=== PATIENT | male | born 1950 | race Caucasian/White ===

== ENCOUNTER 2017-07-29 17:34 | Inpatient (IN) ==
[2017-07-29] MEDS ORDERED: Dextrose Gel 15 GM PO PRN ×2 (18:48)
[2017-07-29] MEDS ORDERED: *HR* Dextrose 50 % in Water (Syg) 50 ML SYRINGE IVP PRN (18:48)
[2017-07-29] MEDS ORDERED: D5% in Water 1,000 ML IVC PRN (18:48)
[2017-07-29] MEDS ORDERED: Insulin DETEMIR 100 UNIT/ML per UNIT SQ ONE (21:00)
[2017-07-29] MEDS: Insulin LISPRO 300 UNITS/3 ML VIAL SQ SCH ×2 (22:20→22:26)
[2017-07-29] MEDS: Gabapentin 300 MG CAPSULE PO SCH (22:23)
[2017-07-29] MEDS: Famotidine 20 MG TABLET PO SCH (22:23)
[2017-07-29] MEDS ORDERED: Melatonin 3 MG TABLET PO SCH (22:45)
[2017-07-29] MEDS ORDERED: Melatonin 3 MG TABLET PO PRN (23:11)
[2017-07-30 05:36] LABS: Basophils % 0.4 %; Eosinophils # 0.2 K/mcL (0.0-0.6); Eosinophils % 2.7 %; Hematocrit 41.6 % (37.5-50.1); Immature Granulocytes % 1.4 % (0-4); Lymphocytes # 3.8 K/mcL (0.6-4.6); Lymphocytes % 42.7 %; Mean Corpuscular HGB Conc 32.5 g/dL (31.6-35.5); Mean Corpuscular Hemoglobin 29.8 pg (28.0-33.3); Mean Corpuscular Volume 91.8 fL (83.0-100.0); Mean Platelet Volume 12.3 fL (9.4-12.4); Monocytes # 0.9 K/mcL (0.0-1.3); Monocytes % 9.6 %; Neutrophils # 3.9 K/mcL (1.6-8.9); Platelet Count 112 K/mcL (140-400); Red Blood Count 4.53 M/mcL (4.19-5.50); Red Cell Distribution Width 13.7 % (11.5-14.5); Segmented Neutrophils % 43.2 %
[2017-07-30 05:38] LABS: INR 1.1; Prothrombin Time 11.6 Seconds (9.4-12.1)
[2017-07-30 05:41] LABS: Activated Partial Thrombo Time 30.4 Seconds (26.0-36.0)
[2017-07-30 05:43] LABS: Hemoglobin 13.5 g/dL (12.9-16.9)
[2017-07-30 05:52] LABS: Calcium 8.8 mg/dL (8.6-10.3); Potassium 4.5 mEq/L (3.5-5.1)
[2017-07-30] MEDS: *HR* Heparin 5,000 UNIT/ML VIAL SQ SCH ×2 (05:58→17:27)
[2017-07-30] MEDS: Famotidine 20 MG TABLET PO SCH ×2 (08:50→22:50)
[2017-07-30] MEDS: Gabapentin 300 MG CAPSULE PO SCH ×3 (08:50→22:49)
[2017-07-30] MEDS: Aspirin 81 MG TAB.CHEW PO SCH (08:50)
[2017-07-30] MEDS: Colchicine 0.6 MG TABLET PO SCH (08:50)
[2017-07-30] MEDS: *HR* Metformin 500 MG TABLET PO SCH ×2 (08:51→17:27)
[2017-07-30] MEDS: Insulin LISPRO 300 UNITS/3 ML VIAL SQ SCH ×4 (08:53→23:39)
[2017-07-30] MEDS ORDERED: *HR* Glimepiride 4 MG TABLET PO SCH (09:00)
--- NOTE | 2017-07-30 11:15 | Internal Med History&Physical ---
Date of Encounter: 07/30/17 Time of Encounter: 11:12 Assessment and Plan (1) CVA (cerebral vascular accident) Current visit: Yes Status: Acute PT/OT eval and treat. education on stroke prevention provided. Qualifiers: CVA mechanism: unspecified Qualified Code(s): I63.9 - Cerebral infarction, unspecified (2) Hypertension Current visit: Yes Controlled with current medication. Monitor blood pressure. Qualifiers: Hypertension type: essential hypertension Qualified Code(s): I10 - Essential (primary) hypertension (3) Diabetes mellitus Current visit: Yes Status: Chronic Continue to monitor fingerstick glucose, achs. Continue glimepiride, metformin , Levamir, Humalog per sliding scale and insulin. Qualifiers: Diabetes mellitus type: type 2 Diabetes mellitus long term care pharmacist insulin use: with snf use Diabetes mellitus complication status: without complication Qualified Code(s): E11.9 - Type 2 diabetes mellitus without complications; Z79.4 - FDC (current) use of insulin; Z79.4 - FDC ( current) use of insulin; Z79.4 - petroleum terminal plant operator (current) use of insulin; Z79.4 - FDC (current) use of insulin (4) Gout Current visit: Yes Status: Acute continue cochicine. monitor for improvement. Qualifiers: Gout site: knee Gout etiology: unspecified cause Chronicity: acute Laterality: right Qualified Code(s): M10.9 - Gout, unspecified (5) CAD (coronary artery disease) Current visit: No Status: Acute continue ASA. monitor. Qualifiers: Coronary Disease-Associated Artery/Lesion type: unspecified vessel or lesion type [place] vs. transplanted heart: unspecified whether [place] or transplanted heart Associated angina: without angina Qualified Code(s): I25.10 - Atherosclerotic heart disease of [place] coronary artery without angina pectoris Internal Medicine - H&P: HPI Admitted From: Hospital to Hospital Transfer Plans for Post Hospital Care: Home History of present illness: Mr. Castro is a 67 year old male admitted to inpatient rehab unit from [facility] status post CVA. Was recently diagnosed with Newby's palsy. Continues to have slight drooping of right-sided facee. Past medical history includes: diabetes, hypertension, CAD with hx of CABG, Gerd, IBS, hyperlipidemia, asthma. Complains of bilateral knee pain right greater than left. States it hurts to put weight on. Denies any instability or feeling like it is going to buckle. Being treated for gout with colchicine. Has had to bowel movements in the past 5 hours so far today. History of gout which has been controlled with allopurinol. Testing performed fellatio includes MRI brain with and without contrast. This shows an acute infarct involving thalamus continue to posterior limit internal The Right Side. X-ray of right knee shows joint fusion interior soft tissue swelling and arthritis. X-ray of right hip concludes arthritis. CT of neck reports both right and left internal and external carotid arteries and for cheap renal arteries with no significant stenosis. Patient lives at home with and has been very active prior to stroke, going to the [facility] for cardio exercise. History of mixed hyperlipidemia. Has tried fenofibrate, Lipitor, simvastatin, zetia in the past. All of them caused lower extremity aches and pains. He is working with PCP on getting injection approved. Past Med Surg Social Fam HX - Past Medical History Medical history: arthritis, asthma, coronary artery disease, diabetes, GERD, hyperlipidemia, hypertension Psychiatric history: anxiety - Past Surgical History Surgical History: other - Social History Smoking Status: Former smoker Smokeless Tobacco Status: No Alcohol use: occasionally Drug use: none - Family History Mother Living Status: Hx Family Cardiac Disorders: Yes Hx Family Respiratory Disorders: No Hx Family Cancer: Yes Hx Family GI Disorders: No Hx Family Endocrine Disorder: Yes (DM) Hx Family Neuromuscular Disorders: No Hx Family Neurologic Disorders: No Hx Family HEENT Disorders: No Hx Family Autoimmune Disorders: No Father Adopted: No Family Member Ethnicity: Non- Living Status: Age at : 81 Hx Family Cardiac Disorders: Yes (HEART ATTACK) Hx Family Respiratory Disorders: No Hx Family Cancer: No Hx Family GI Disorders: No Hx Family Endocrine Disorder: No Hx Family Neuromuscular Disorders: No Hx Family Neurologic Disorders: No Hx Family HEENT Disorders: No Hx Family Autoimmune Disorders: No Internal Medicine - H&P: Meds Albuterol Sulfate [Proventil Hfa] 2 puff IH Q4H PRN 01/05/15 [History] Aspirin Enteric Coated [Aspirin EC] 81 mg PO DAILY 01/05/15 [History] Colchicine [Colcrys] 0.6 mg PO TID PRN 01/05/15 [History] Hydrocodone/Acetaminophen [[place] 5-325 Tablet] 1 tab PO BID PRN 01/05/15 [ History] Losartan [Cozaar] 25 mg PO DAILY 01/05/15 [History] Pantoprazole Sodium [Protonix] 40 mg PO QAM 01/05/15 [History] Zolpidem [Ambien] 5 mg PO HS 01/05/15 [History] Glimepiride [Amaryl] 4 mg PO BID 07/18/15 [History] Baclofen [Lioresal] 10 mg PO BID PRN 11/20/15 [History] Allopurinol [Zyloprim] 100 mg PO DAILY 03/11/16 [History] Insulin DETEMIR [Levemir Flextouch] 50 unit SQ HS 03/11/16 [History] Budesonide/Formoterol 160/4.5 [Symbicort 160/4.5] 2 puff IH BIDR 08/19/16 [ History] Ranitidine HCl [Heartburn Relief] 150 mg PO BID 08/19/16 [History] Gabapentin [Neurontin] 600 mg PO TID 10/28/16 [History] Ezetimibe [Zetia] 10 mg PO DAILY 05/30/17 [History] Fluticasone Propionate Nasal [Flonase] 50 mcg NS BID 05/30/17 [History] Insulin ASPART [Novolog Flexpen] 0 unit SQ TIDAC 05/30/17 [History] Loratadine [Claritin] 10 mg PO DAILY 05/30/17 [History] Metoprolol XL (24 HR) Succ [Toprol Xl] 50 mg PO DAILY 05/30/17 [History] Montelukast [Singulair] 10 mg PO DAILY 05/30/17 [History] 3 Allergy/AdvReac Type Severity Reaction Status Date / Time niacin AdvReac Unknown Flushing Verified 10/28/16 10:19 nitroglycerin AdvReac Unknown Hypotension Verified 10/28/16 10:19 Oxycodone AdvReac Unknown Agitated Verified 10/28/16 10:19 Penicillins AdvReac Unknown Hives Verified 10/28/16 10:19 JAVIER Inhibitors AdvReac Cough Verified 07/13/16 18:34 atorvastatin AdvReac Diarrhea Verified 07/13/16 18:34 ezetimibe [From Zetia] AdvReac Dizziness Verified 07/13/16 18:34 simvastatin AdvReac Dizziness Verified 07/13/16 18:34 All Systems PM: A 10-system review of systems was performed and is negative for pertinent findings except as documented above in the HPI. - Constitutional Constitutional: no chills, no fever(s), no night sweats - EENT Eyes: no change in vision, no discharge, no pain, no photophobia Ears: no ear discharge, no ear pain, no tinnitus Nose, mouth and throat: no dysphagia, no nasal discharge, no neck pain, no sore throat - Cardiovascular Cardiovascular ROS IM: no chest pain, no diaphoresis, no dyspnea, no lightheadedness, no palpitations, no syncope - Respiratory Respiratory: no cough, no dyspnea, no wheezing, no excessive phlegm production - Gastrointestinal Gastrointestinal: no abdominal pain, no diarrhea, no hematemesis, no hematochezia, no melena, no nausea, no vomiting - Musculoskeletal Musculoskeletal ROS IM: no numbness, no tingling Additional comments: Bilateral knee pain and swelling - Integumentary Integumentary IM: no rash, no unusual bruising - Neurological Neurological ROS: no confusion, no convulsions, no focal weakness, no numbness, no tingling, no tremor(s) - Hematologic/Lymphatic Hematologic/Lymphatic: no easy bruising - Constitutional Vitals: Temp Pulse Resp BP Pulse Ox 97.7 F 50 16 162/80 98 07/30/17 07:42 07/30/17 07:42 07/30/17 07:42 07/30/17 07:42 07/30/17 07:42 General appearance: Present: A&O X 3, pleasant, no acute distress, answers questions appropriately - Head Head exam: Present: atraumatic, normocephalic - Eye Eye exam: Present: PERRL, conjuntiva pink, sclera anicteric Pupils: Present: PERRL - Neck Neck exam general surgery: Present: supple, trachea midline. Absent: lymphadenopathy - Respiratory Respiratory exam: Present: CTAB. Absent: accessory muscle use, rales, rhonchi, wheezes - Cardiovascular Cardiovascular exam: Present: RRR, +S1, +S2. Absent: diastolic murmur, gallop, rubs, systolic murmur - GI/Abdominal GI/Abdominal exam: Present: normal bowel sounds, soft, no peritoneal signs. Absent: distended, tenderness - Extremities Exam Extremities exam: Present: warm, radial pulses palpable and symmetrical. Absent : calf tenderness, cyanotic, pedal edema Additional comments: bilateral knees swollen R>L with redness and slight warmth. tender to palpate around the right patellar area on right knee. - Neurological Exam Neurological exam: Present: CN II-XII intact, oriented X3, no focal deficits, strengths equal and symetr throughout, facial droop. Absent: pronater drift, speech deficit Additional comments: slight right sided facial droop - Skin Skin exam: Present: dry, intact Internal Med - H&P Results - Labs CBC & Chem 7: 07/30/17 05:20 07/30/17 05:20 Labs: Short CBC 07/30/17 Range/Units 05:20 WBC 9.0 (4.3-11.1) K/mcL Hgb 13.5 D (12.9-16.9) g/dL Hct 41.6 (37.5-50.1) % Plt Count 112 L (140-400) K/mcL Neutrophils # 3.9 (1.6-8.9) K/mcL BMP 07/30/17 05:20 Sodium 136 Potassium 4.5 Chloride 102 Carbon Dioxide 29 BUN 20 Creatinine 1.49 H Glucose 128 H Calcium 8.8
[2017-07-30] MEDS: Fluticasone Propionate Nasal 50 MCG/SPRAY BOTTLE NS SCH (12:36)
[2017-07-30] MEDS: *HR* HYDROcodone/Acet 5/325 mg TABLET PO PRN (12:47)
[2017-07-30] MEDS: Insulin DETEMIR 100 UNIT/ML per UNIT SQ SCH (23:38)
[2017-07-31] MEDS: *HR* Heparin 5,000 UNIT/ML VIAL SQ SCH ×2 (06:08→17:01)
[2017-07-31] MEDS: *HR* HYDROcodone/Acet 5/325 mg TABLET PO PRN (06:09)
[2017-07-31 06:37] LABS: Basophils # 0.1 K/mcL (0.0-0.2); Basophils % 0.8 %; Eosinophils # 0.2 K/mcL (0.0-0.6); Eosinophils % 2.5 %; Hemoglobin 13.7 g/dL (12.9-16.9); Lymphocytes # 3.2 K/mcL (0.6-4.6); Lymphocytes % 44.5 %; Mean Corpuscular HGB Conc 33.4 g/dL (31.6-35.5); Mean Corpuscular Hemoglobin 30.3 pg (28.0-33.3); Mean Corpuscular Volume 90.7 fL (83.0-100.0); Mean Platelet Volume 12.5 fL (9.4-12.4); Monocytes # 0.6 K/mcL (0.0-1.3); Monocytes % 8.6 %; Platelet Count 131 K/mcL (140-400); Red Blood Count 4.52 M/mcL (4.19-5.50); Red Cell Distribution Width 13.5 % (11.5-14.5); Segmented Neutrophils % 42.6 %
[2017-07-31 06:55] LABS: Alanine Aminotransferase 42 Units/L (7-52); Albumin 3.4 g/dL (3.5-5.7); Albumin/Globulin Ratio 1.2 (1.1-2.2); Alkaline Phosphatase 84 Units/L (34-104); Aspartate Amino Transferase 33 Units/L (13-39); BUN/Creatinine Ratio 14 (6-26); Bilirubin,Total 0.4 mg/dL (0.3-1.0); Blood Urea Nitrogen 20 mg/dL (8-23); Calcium 9.2 mg/dL (8.6-10.3); Carbon Dioxide 27 mEq/L (23-29); Chloride 101 mEq/L (98-107); Globulin 2.9 g/dL (2.4-3.5); Glucose 192 mg/dL (70-105); Osmolality,Calculated 288 (280-300); Potassium 4.4 mEq/L (3.5-5.1); Sodium 135 mEq/L (136-145); Total Protein 6.3 g/dL (6.4-8.9); Uric Acid 6.6 mg/dL (2.3-7.6); eGFR For African Americans > 60 (> 60); eGFR For Non-African Americans 50 (> 60)
[2017-07-31] MEDS: Insulin LISPRO 300 UNITS/3 ML VIAL SQ SCH ×4 (07:52→21:11)
[2017-07-31] MEDS: Famotidine 20 MG TABLET PO SCH ×2 (07:53→21:40)
[2017-07-31] MEDS: Colchicine 0.6 MG TABLET PO SCH (07:53)
[2017-07-31] MEDS: Gabapentin 300 MG CAPSULE PO SCH ×3 (07:53→21:39)
[2017-07-31] MEDS: *HR* Glimepiride 4 MG TABLET PO SCH ×2 (07:53→21:40)
[2017-07-31] MEDS: Metoprolol XL (24 HR) Succ 25 MG TAB.ER.24H PO SCH (07:54)
[2017-07-31] MEDS: Aspirin 81 MG TAB.CHEW PO SCH (07:54)
[2017-07-31] MEDS: *HR* Metformin 500 MG TABLET PO SCH ×2 (07:54→17:01)
[2017-07-31] MEDS: Fluticasone Propionate Nasal 50 MCG/SPRAY BOTTLE NS SCH (07:55)
--- NOTE | 2017-07-31 17:35 | Internal Med Progress Note ---
Date of Encounter: 07/31/17 Time of Encounter: 17:31 - Assessment and plan (1) CVA (cerebral vascular accident) Current Visit: Yes Status: Acute Assessment and plan: No acute issues. Patient denies any discomforts or shortness of breath. Patient denies any acute neurological deficits. On exam patient shows no focal deficits. History of Newby's palsy but no facial droop noted. Patient states he continues to have some difficulty with balance and continues to use a walker to reduce risk of fall. Will continue with physical therapy Qualifiers: CVA mechanism: unspecified Qualified Code(s): I63.9 - Cerebral infarction, unspecified (2) Hypertension Current Visit: Yes Status: Chronic Assessment and plan: Vital signs are stable. We will continue with current medications. Qualifiers: Hypertension type: essential hypertension Qualified Code(s): I10 - Essential (primary) hypertension (3) Diabetes mellitus Current Visit: Yes Status: Chronic Assessment and plan: No acute issues. We will continue with fingersticks and SSI coverage. 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 Continue with current plan of care and medications Qualifiers: Coronary Disease-Associated Artery/Lesion type: unspecified vessel or lesion type [place] vs. transplanted heart: unspecified whether [place] or transplanted heart Associated angina: without angina Qualified Code(s): I25.10 - Atherosclerotic heart disease of [place] coronary artery without angina pectoris - Time Spent With Patient less than 15 minutes - Subjective Interval history: Patient appears relaxed and currently denies any discomforts or shortness of breath. Patient denies any acute neurological deficits. States that physical therapy has been going well. - Constitutional Vitals: Temp Pulse Resp BP Pulse Ox 98.7 F 78 16 129/89 96 07/31/17 08:14 07/31/17 08:14 07/31/17 08:14 07/31/17 08:14 07/31/17 08:14 General appearance: Present: A&O X 3, pleasant, no acute distress, answers questions appropriately - Head Head exam: Present: atraumatic, normocephalic - Eye Eye exam: Present: PERRL, conjuntiva pink, sclera anicteric Pupils: Present: PERRL - Neck Neck exam general surgery: Present: supple, trachea midline. Absent: lymphadenopathy - Respiratory Respiratory exam: Present: CTAB. Absent: accessory muscle use, rales, rhonchi, wheezes - Cardiovascular Cardiovascular exam: Present: RRR, +S1, +S2. Absent: diastolic murmur, gallop, rubs, systolic murmur - GI/Abdominal GI/Abdominal exam: Present: normal bowel sounds, soft, no peritoneal signs. Absent: distended, tenderness - Extremities Exam Extremities exam: Present: warm, radial pulses palpable and symmetrical. Absent : calf tenderness, cyanotic, pedal edema - Neurological Exam Neurological exam: Present: CN II-XII intact, oriented X3, no focal deficits. Absent: pronater drift, facial droop, speech deficit Additional comments: History of Newby's palsy, but no facial droop noted on exam. Speech is clear. No neurological focal deficits noted on exam. - Skin Skin exam: Present: dry, intact Internal Medicine: Result - Labs CBC & Chem 7: 07/31/17 06:05 07/31/17 06:05 Labs: Short CBC 07/31/17 Range/Units 06:05 WBC 7.1 (4.3-11.1) K/mcL Hgb 13.7 (12.9-16.9) g/dL Hct 41.0 (37.5-50.1) % Plt Count 131 L (140-400) K/mcL Neutrophils # 3.0 (1.6-8.9) K/mcL BMP 07/31/17 06:05 Sodium 135 L Potassium 4.4 Chloride 101 Carbon Dioxide 27 BUN 20 Creatinine 1.41 H Glucose 192 H Calcium 9.2 Liver Function 07/31/17 Range/Units 06:05 Total Bilirubin 0.4 (0.3-1.0) mg/dL AST 33 (13-39) Units/L ALT 42 (7-52) Units/L Alkaline Phosphatase 84 (34-104) Units/L Albumin 3.4 L (3.5-5.7) g/dL - ABG Interpretation ABG results: PT/INR, D-dimer PT 11.6 Seconds (9.4-12.1) 07/30/17 05:20 Consult Discharge Plan - Plan Referrals: Rehan Quintana CNP [Primary Care Provider] -
[2017-07-31 18:54] VITALS: BP 163/74
--- NOTE | 2017-07-31 21:21 | Physcial Medicine-Consult Note ---
Date of Encounter: 07/31/17 Time of Encounter: 19:00 Physical Medicine - AP (1) CVA (cerebral vascular accident) Status: Acute Assessment and plan: Good progress in therapies. Working on balance and safety. Discharge planning. Code(s): I63.9 - Cerebral infarction, unspecified SNOMED Code(s): 220004605 Physical Medicine - HPI - Data of Consult Requesting Physician: Mitchel Mancilla MD Primary Care Provider: Rehan Quintana CNP - Consult Narrative History of present illness: Mr. Castro is a 67 year old RH male admitted to [facility] with thalamic CVA manifest as poor balance and motor control. He is asking to go home however is still having unsteady gait, poor safety awareness, and poor insight into his deficits. CC: Mitchel Mancilla MD Past Med Surg Social Fam HX - Past Medical History Medical history: arthritis, asthma, coronary artery disease, diabetes, GERD, hyperlipidemia, hypertension, other (Gout) Psychiatric history: anxiety - Past Surgical History Surgical History: other - Social History Smoking Status: Former smoker Smokeless Tobacco Status: No Alcohol use: occasionally Drug use: none - Family History Mother Living Status: Hx Family Cardiac Disorders: Yes Hx Family Respiratory Disorders: No Hx Family Cancer: Yes Hx Family GI Disorders: No Hx Family Endocrine Disorder: Yes (DM) Hx Family Neuromuscular Disorders: No Hx Family Neurologic Disorders: No Hx Family HEENT Disorders: No Hx Family Autoimmune Disorders: No Father Adopted: No Family Member Ethnicity: Non- Living Status: Age at : 81 Hx Family Cardiac Disorders: Yes (HEART ATTACK) Hx Family Respiratory Disorders: No Hx Family Cancer: No Hx Family GI Disorders: No Hx Family Endocrine Disorder: No Hx Family Neuromuscular Disorders: No Hx Family Neurologic Disorders: No Hx Family HEENT Disorders: No Hx Family Autoimmune Disorders: No Medications and Allergies Albuterol Sulfate [Proventil Hfa] 2 puff IH Q4H PRN 01/05/15 [History] Aspirin Enteric Coated [Aspirin EC] 81 mg PO DAILY 01/05/15 [History] Colchicine [Colcrys] 0.6 mg PO TID PRN 01/05/15 [History] Hydrocodone/Acetaminophen [[place] 5-325 Tablet] 1 tab PO BID PRN 01/05/15 [ History] Losartan [Cozaar] 25 mg PO DAILY 01/05/15 [History] Pantoprazole Sodium [Protonix] 40 mg PO QAM 01/05/15 [History] Zolpidem [Ambien] 5 mg PO HS 01/05/15 [History] Glimepiride [Amaryl] 4 mg PO BID 07/18/15 [History] Baclofen [Lioresal] 10 mg PO BID PRN 11/20/15 [History] Allopurinol [Zyloprim] 100 mg PO DAILY 03/11/16 [History] Insulin DETEMIR [Levemir Flextouch] 50 unit SQ HS 03/11/16 [History] Budesonide/Formoterol 160/4.5 [Symbicort 160/4.5] 2 puff IH BIDR 08/19/16 [ History] Ranitidine HCl [Heartburn Relief] 150 mg PO BID 08/19/16 [History] Gabapentin [Neurontin] 600 mg PO TID 10/28/16 [History] Ezetimibe [Zetia] 10 mg PO DAILY 05/30/17 [History] Fluticasone Propionate Nasal [Flonase] 50 mcg NS BID 05/30/17 [History] Insulin ASPART [Novolog Flexpen] 0 unit SQ TIDAC 05/30/17 [History] Loratadine [Claritin] 10 mg PO DAILY 05/30/17 [History] Metoprolol XL (24 HR) Succ [Toprol Xl] 50 mg PO DAILY 05/30/17 [History] Montelukast [Singulair] 10 mg PO DAILY 05/30/17 [History] 3 Allergy/AdvReac Type Severity Reaction Status Date / Time niacin AdvReac Unknown Flushing Verified 10/28/16 10:19 nitroglycerin AdvReac Unknown Hypotension Verified 10/28/16 10:19 Oxycodone AdvReac Unknown Agitated Verified 10/28/16 10:19 Penicillins AdvReac Unknown Hives Verified 10/28/16 10:19 JAVIER Inhibitors AdvReac Cough Verified 07/13/16 18:34 atorvastatin AdvReac Diarrhea Verified 07/13/16 18:34 ezetimibe [From Zetia] AdvReac Dizziness Verified 07/13/16 18:34 simvastatin AdvReac Dizziness Verified 07/13/16 18:34 All systems: reviewed and no additional remarkable complaints except as stated ( see HPI and PMH) Physical Medicine - Exam - Constitutional Vitals: Temp Pulse Resp BP Pulse Ox 97.9 F 62 16 163/74 95 07/31/17 18:53 07/31/17 18:53 07/31/17 18:53 07/31/17 18:53 07/31/17 18:53 General appearance: no acute distress, obese - Head Head exam: Present: atraumatic, normocephalic - Eye Eye exam: Present: EOMI - ENT ENT exam: Present: mucous membranes moist - Neck Neck exam: Present: full ROM - Respiratory Respiratory exam: Present: CTAB - Cardiovascular Cardiovascular exam: Present: RRR - GI/Abdominal GI/Abdominal exam: Present: normal bowel sounds, soft - Extremities Exam Extremities exam: Present: full ROM, normal inspection - Neurological Exam Neurological exam: Present: abnormal gait, alert, CN II-XII intact, oriented X3 , reflexes normal, no focal deficits - Psychiatric Psychiatric exam: Present: normal affect, normal mood - Skin Skin exam: Present: intact, normal color Physical Medicine - Results - Labs CBC & Chem 7: 07/31/17 06:05 07/31/17 06:05 Labs: Short CBC 07/31/17 Range/Units 06:05 WBC 7.1 (4.3-11.1) K/mcL Hgb 13.7 (12.9-16.9) g/dL Hct 41.0 (37.5-50.1) % Plt Count 131 L (140-400) K/mcL Neutrophils # 3.0 (1.6-8.9) K/mcL BMP 07/31/17 06:05 Sodium 135 L Potassium 4.4 Chloride 101 Carbon Dioxide 27 BUN 20 Creatinine 1.41 H Glucose 192 H Calcium 9.2 Liver Function 07/31/17 Range/Units 06:05 Total Bilirubin 0.4 (0.3-1.0) mg/dL AST 33 (13-39) Units/L ALT 42 (7-52) Units/L Alkaline Phosphatase 84 (34-104) Units/L Albumin 3.4 L (3.5-5.7) g/dL Hyponatremia, Hyperglycemia, CKD2 Consult Discharge Plan - Plan Referrals: Rehan Quintana CNP [Primary Care Provider] -
[2017-07-31] MEDS: Insulin DETEMIR 100 UNIT/ML per UNIT SQ SCH (21:40)
[2017-08-01] MEDS: *HR* Heparin 5,000 UNIT/ML VIAL SQ SCH (06:29)
[2017-08-01] MEDS: Insulin LISPRO 300 UNITS/3 ML VIAL SQ SCH ×2 (09:38→11:43)
[2017-08-01] MEDS: Gabapentin 300 MG CAPSULE PO SCH (10:01)
[2017-08-01] MEDS: Aspirin 81 MG TAB.CHEW PO SCH (10:01)
[2017-08-01] MEDS: Famotidine 20 MG TABLET PO SCH (10:01)
[2017-08-01] MEDS: *HR* Metformin 500 MG TABLET PO SCH (10:01)
[2017-08-01] MEDS: *HR* Glimepiride 4 MG TABLET PO SCH (10:02)
[2017-08-01] MEDS: Colchicine 0.6 MG TABLET PO SCH (10:02)
[2017-08-01] MEDS: Metoprolol XL (24 HR) Succ 25 MG TAB.ER.24H PO SCH (10:02)
[2017-08-01] MEDS: Fluticasone Propionate Nasal 50 MCG/SPRAY BOTTLE NS SCH (10:03)
--- NOTE | 2017-08-01 11:29 | Discharge Summary ---
Date of Encounter: 08/01/17 Time of Encounter: 11:29 - Discharge Diagnosis (1) CVA (cerebral vascular accident) Priority: Primary Status: Acute Comments: Patient was admitted to facility for rehabilitation secondary to deconditioning and issues with unstable gait due to issues. Patient was transferred from [facility] after x-rays and a CVA. No focal deficits noted on exam, but patient continues to have balance issues when standing and ambulation. Patient has expressed desire to be discharged to home and follow-up as an outpatient for physical therapy. Patient has remained stable and his neurological exam during stay. Denies any discomforts. Patient instructed to continue on aspirin. Patient to continue with current medications at home follow-up with neurology and PCP. Qualifiers: CVA mechanism: unspecified Qualified Code(s): I63.9 - Cerebral infarction, unspecified (2) Hypertension Priority: Secondary Status: Chronic Comments: Vital signs of remained stable during admission to facility. Patient to continue with current medications at home Qualifiers: Hypertension type: essential hypertension Qualified Code(s): I10 - Essential (primary) hypertension (3) Diabetes mellitus Priority: Secondary Status: Chronic Comments: Patients glucose has remained stable at 150-200 range. Patient was covered with SSI. During hospital stay at [facility] patient was started on metformin, which she states has improved his glucose coverage. We will decrease patient's Levemir home dose from 50 units to 25 units. Patient instructed to continue with daily before meals fingersticks and if he experiences glucose greater than 200 to call his telehealth director for further recommendations. Patient states understanding of directions. Patient instructed to schedule follow-up visit with telehealth director in the next few weeks. Qualifiers: Diabetes mellitus type: type 2 Diabetes mellitus intermediate project manager insulin use: with usp use Diabetes mellitus complication status: without complication Qualified Code(s): E11.9 - Type 2 diabetes mellitus without complications; Z79.4 - rn long term care (current) use of insulin; Z79.4 - rn long term care ( current) use of insulin; Z79.4 - [facility] (current) use of insulin; Z79.4 - [facility] (current) use of insulin (4) CAD (coronary artery disease) Priority: Secondary Status: Acute Comments: No acute issues during admission at this facility. Patient to continue with current medications at home Qualifiers: Coronary Disease-Associated Artery/Lesion type: unspecified vessel or lesion type [place] vs. transplanted heart: unspecified whether lime or transplanted heart Associated angina: without angina Qualified Code(s): I25.10 - Atherosclerotic heart disease of [place] coronary artery without angina pectoris Hospital course: Mr. Castro is a 67 year old male who is in moderate distress facility for rehabilitation and strengthening due to patient's steady gait and balance issues. Patient had recent falls at home. Patient was originally admitted to [facility] where he was diagnosed with a right CVA. Was recently diagnosed with Newby' s palsy. Continues to have slight drooping of right-sided face, but otherwise shows no focal neurological deficits on exam.. Past medical history includes: diabetes, hypertension, CAD with hx of CABG, Gerd, IBS, hyperlipidemia, asthma. Patient participated in physical therapy and progressed well. Patient requesting discharge to home and will follow-up as outpatient physical therapy. Patient's glucose was well-controlled during stay of facility after being started on metformin at [facility]. Patient's home dose of levemir was reduced and patient instructed to follow-up with endocrinology after discharge. Patient also instructed to follow up with neurology and PCP for further evaluation and treatment. Discharge discussed with: patient Time spent discussing smoking cessation with patient: 3 to 10 minutes - Time Spent with Patient Total time spent providing and/or coordinating discharge services: Less than 30 minutes - Discharge Medications Home Medications: Albuterol Sulfate [Proventil Hfa] 2 puff IH Q4H PRN 01/05/15 [History] Aspirin Enteric Coated [Aspirin EC] 81 mg PO DAILY 01/05/15 [History] Colchicine [Colcrys] 0.6 mg PO TID PRN 01/05/15 [History] Hydrocodone/Acetaminophen [[place] 5-325 Tablet] 1 tab PO BID PRN 01/05/15 [ History] Losartan [Cozaar] 25 mg PO DAILY 01/05/15 [History] Pantoprazole Sodium [Protonix] 40 mg PO QAM 01/05/15 [History] Zolpidem [Ambien] 5 mg PO HS 01/05/15 [History] Glimepiride [Amaryl] 4 mg PO BID 07/18/15 [History] Baclofen [Lioresal] 10 mg PO BID PRN 11/20/15 [History] Allopurinol [Zyloprim] 100 mg PO DAILY 03/11/16 [History] Insulin DETEMIR [Levemir Flextouch] 50 unit SQ HS 03/11/16 [History] Budesonide/Formoterol 160/4.5 [Symbicort 160/4.5] 2 puff IH BIDR 08/19/16 [ History] Ranitidine HCl [Heartburn Relief] 150 mg PO BID 08/19/16 [History] Gabapentin [Neurontin] 600 mg PO TID 10/28/16 [History] Ezetimibe [Zetia] 10 mg PO DAILY 05/30/17 [History] Fluticasone Propionate Nasal [Flonase] 50 mcg NS BID 05/30/17 [History] Insulin ASPART [Novolog Flexpen] 0 unit SQ TIDAC 05/30/17 [History] Loratadine [Claritin] 10 mg PO DAILY 05/30/17 [History] Metoprolol XL (24 HR) Succ [Toprol Xl] 50 mg PO DAILY 05/30/17 [History] Montelukast [Singulair] 10 mg PO DAILY 05/30/17 [History] Allergies/Adverse Reactions: 3 Allergy/AdvReac Type Severity Reaction Status Date / Time niacin AdvReac Unknown Flushing Verified 10/28/16 10:19 nitroglycerin AdvReac Unknown Hypotension Verified 10/28/16 10:19 Oxycodone AdvReac Unknown Agitated Verified 10/28/16 10:19 Penicillins AdvReac Unknown Hives Verified 10/28/16 10:19 JAVIER Inhibitors AdvReac Cough Verified 07/13/16 18:34 atorvastatin AdvReac Diarrhea Verified 07/13/16 18:34 ezetimibe [From Zetia] AdvReac Dizziness Verified 07/13/16 18:34 simvastatin AdvReac Dizziness Verified 07/13/16 18:34 Date of admission: 07/29/17 17:45 Primary care physician: Rehan Quintana CNP Consults: 07/29/17 18:09 Consult to Heel Reducer [CONS] Routine Reason for SW Consult: POA info wanted 07/29/17 18:44 Consult to Occupational Therapy [CONS] Routine Comment: Evaluate, develop and implement POC Reason for Consult: rehab s/p CVA Does patient have active BEDREST order?: No Is patient medically & hemodynamically stable?: Yes Patient assessed for mobility or mobilized this visit?: Yes Consult to Physical Therapy [CONS] Routine Comment: Evaluate, develop and implement POC Reason for Consult: rehab s/p CVA Does patient have active BEDREST order?: No Is patient medically & hemodynamically stable?: Yes Patient assessed for mobility or mobilized this visit?: Yes Consult to Recreational Therapy [CONS] Routine Comment: Evaluate, develop and implement POC Consult to Speech Therapy [CONS] Routine Comment: Evaluate, develop and implement POC Reason for Consult: speech impairment; garbled speech Call Completed: No 07/30/17 07:44 Consult to Physical Medicine/Rehab [CONS] Routine Reason for Consult: Please evaluate and manage therapies' guidelines and recommend pathway to reconditioning. Call Completed: No Discharging clinician: Mitchel Mancilla Anticipated date of discharge: 08/01/17 - Constitutional Vitals: Temp Pulse Resp BP Pulse Ox 97.9 F 62 16 163/74 95 07/31/17 18:53 07/31/17 18:53 07/31/17 18:53 07/31/17 18:53 07/31/17 21:56 General appearance: Present: A&O X 3, pleasant, no acute distress, answers questions appropriately - Head Head exam: Present: atraumatic, normocephalic - Eye Eye exam: Present: PERRL, conjuntiva pink, sclera anicteric Pupils: Present: PERRL - Neck Neck exam general surgery: Present: supple, trachea midline. Absent: lymphadenopathy - Respiratory Respiratory exam: Present: CTAB. Absent: accessory muscle use, rales, rhonchi, wheezes - Cardiovascular Cardiovascular exam: Present: RRR, +S1, +S2. Absent: diastolic murmur, gallop, rubs, systolic murmur - GI/Abdominal GI/Abdominal exam: Present: normal bowel sounds, soft, no peritoneal signs. Absent: distended, tenderness - Extremities Exam Extremities exam: Present: warm, radial pulses palpable and symmetrical. Absent : calf tenderness, cyanotic, pedal edema - Neurological Exam Neurological exam: Present: CN II-XII intact, oriented X3. Absent: pronater drift, facial droop, speech deficit Additional comments: Patient shows very slight right sided facial droop. Speech is clear tongue is midline. No focal motor deficits noted on examination of extremities. - Skin Skin exam: Present: dry, intact - Patient Status Disposition: Home, Self-Care Condition: Good Functional capacity at discharge: uses cane/walker Overall status at discharge: patient is progressing back to baseline - Discharge Instructions Instructions: Diabetes Mellitus Type 2 in Adults (DC), Ischemic Stroke (DC) Follow Up With: omid howard [Other] - 10/21/17 10:00 am (Please arrive by 9:45 am. ) Rehan Quintana CNP [Primary Care Provider] - 08/05/17 9:15 am (Dr. Ledesma ) - Diet and Activity Activity: ambulate only with your walker, increase activity as tolerated, resume usual activities as tolerated Diet: diabetic diet, low fat, low cholesterol, low salt diet
[2017-08-01] MEDS ORDERED: Insulin DETEMIR 100 UNIT/ML X5UNITS SQ SCH (21:00)
== END 2017-08-01 12:15 | disposition home or self-care (01) | DRG 57 ==
LOC: INPGRE 17:45